=== PATIENT | female | born 2000 | race African-American/Black ===

== ENCOUNTER 2021-03-30 19:02 | Emergency (ER) | payer SELFPAY | END 2021-03-30 20:50 | disposition home or self-care (01) | LOC: CSHERS 19:02 | DX: K62.5 Hemorrhage of anus and rectum (principal); R13.10 Dysphagia, unspecified; F17.200 Nicotine dependence, unspecified, uncomplicated | CPT/HCPCS: 99283 ==

== ENCOUNTER 2021-04-25 16:14 | Emergency (ER) | payer SELFPAY ==
[2021-04-26 17:41] LABS: SARS-CoV-2 PCR by NAA Not Detected (NotDetected)
== END 2021-04-25 18:46 | disposition home or self-care (01) ==
LOC: CSHERS 16:14
DX: B34.9 Viral infection, unspecified (principal); F17.290 Nicotine dependence, other tobacco product, uncomplicated; Z20.822 Contact with and (suspected) exposure to COVID-19
CPT/HCPCS: 99283; U0003; U0005

== ENCOUNTER 2021-05-12 17:48 | Emergency (ER) | payer SELFPAY ==
[2021-05-13 15:38] LABS: SARS-CoV-2 PCR by NAA Not Detected (NotDetected)
== END 2021-05-12 21:38 | disposition home or self-care (01) ==
LOC: CSHERS 17:48
DX: R05.9 Cough, unspecified (principal); R50.9 Fever, unspecified; Z20.822 Contact with and (suspected) exposure to COVID-19; F17.200 Nicotine dependence, unspecified, uncomplicated
CPT/HCPCS: 99283; U0003; U0005

== ENCOUNTER 2021-09-27 17:17 | Emergency (ER) | payer BC, SELFPAY ==
[2021-09-27 18:32] LABS: Bilirubin Neg (Negative); Blood, Urine 10 (Negative); Clarity Clear (Clear); Glucose, Urine (Dipstick) Normal (Negative); Ketone, Urine Negative (Negative); Leukocyte Negative (Negative); Nitrite Negative (Negative); Protein, Urine (Dipstick) 30 mg/dl (Neg-Trace); Specific Gravity, Urine 1.015 (1.002-1.036); pH, Urine 6.5 (5.0-9.0)
[2021-09-27 18:35] LABS: Pregnancy Test - Urine (BHCG) Negative (Negative); Pregu Control Background? CLEAR/WHITE (CLR/WHITE); Pregu Control Bar Appear? YES (CONTROL BAR); Specific Gravity 1.015 (1.002-1.036)
[2021-09-27 18:55] LABS: Bacteria/HPF 2+ HPF (None Seen); Mucous/LPF 4+ LPF (<2+); WBC/HPF 0-3 HPF (0-3)
[2021-09-27] MEDS ORDERED: cefTRIAXone\\ROCEPHIN 500 MG VIAL ONE (19:14)
[2021-09-27] MEDS ORDERED: Lidocaine 2% PF 5 ML VIAL ONE (19:15)
[2021-09-27 19:34] LABS: Syphilis Antibody Nonreactive (Nonreactive); Syphilis Antibody Index 0.05 S/CO (<1.00 Non-Reactive)
[2021-09-28 13:27] LABS: Chlam.trachomatis by PCR,Urine Not Detected (NotDetected)
== END 2021-09-27 19:15 | disposition home or self-care (01) ==
LOC: CSHERS 17:17
DX: N89.8 Other specified noninflammatory disorders of vagina (principal); R59.0 Localized enlarged lymph nodes; Z20.2 Contact with and (suspected) exposure to infections with a predominantly sexual mode of transmission
CPT/HCPCS: 81003; 81015; 81025; 86780; 87491; 87591; 96372; 99283; J0696; J2001

== ENCOUNTER 2021-10-09 16:10 | Emergency (ER) | payer SELFPAY ==
[2021-10-09 17:57] LABS: Bilirubin Neg (Negative); Blood, Urine 150 (Negative); Clarity Clear (Clear); Glucose, Urine (Dipstick) Normal (Negative); Ketone, Urine 5 mg/dL (Negative); Leukocyte 25 (Negative); Nitrite Negative (Negative); Protein, Urine (Dipstick) 500 mg/dl (Neg-Trace); Specific Gravity, Urine 1.025 (1.002-1.036); Urobilinogen Normal mg/dL (Less than 2)
[2021-10-09 17:59] LABS: Pregnancy Test - Urine (BHCG) Negative (Negative); Pregu Control Background? CLEAR/WHITE (CLR/WHITE); Pregu Control Bar Appear? YES (CONTROL BAR); Specific Gravity 1.025 (1.002-1.036)
[2021-10-09 18:29] LABS: Bacteria/HPF None Seen HPF (None Seen); Mucous/LPF 1+ LPF (<2+); Squamous Epithelial 0-3 HPF (0-3); WBC/HPF 0-3 HPF (0-3)
[2021-10-10 15:44] LABS: Chlamydia by PCR Not Detected (NotDetected); GC by PCR Not Detected (NotDetected)
== END 2021-10-09 18:29 | disposition home or self-care (01) ==
LOC: CSHERS 16:10
DX: N76.0 Acute vaginitis (principal)
CPT/HCPCS: 81003; 81015; 81025; 87480; 87491; 87510; 87591; 87660; 99284

== ENCOUNTER 2021-10-23 16:17 | Emergency (ER) | payer SELFPAY ==
[2021-10-23 17:30] LABS: #Monocytes 0.5 10x3/uL (0.0-1.1); #Neutrophils 5.5 10x3/uL (1.5-8.4); %Basophils 0.3 % (0.0-2.0); %Eosinophils 0.4 % (0.0-6.0); %Lymphocytes 20.2 % (18.0-47.0); %Monocytes 6.1 % (0.0-10.0); %Neutrophils 72.6 % (40.0-75.0); Hemoglobin 13.4 g/dL (12.0-15.5); Mean Corpuscular HGB CONC 32.4 g/dL (32.0-36.0); Mean Corpuscular Hemoglobin 28.8 pg (27.0-33.0); Mean Corpuscular Volume 88.8 fl (81.6-98.3); Mean Platelet Volume 9.6 fl (7.4-10.4); Platelet Count 234 10x3/uL (150-450); RBC Distribution Width 13.1 % (11.5-14.5); Red Blood Cell (RBC) Count 4.65 10x6/uL (3.90-5.03); White Blood Cell (WBC) Count 7.5 10x3/uL (3.5-10.5)
[2021-10-23 17:39] LABS: ALT (SGPT) 16 U/L (8-55); AST (SGOT) 16 U/L (5-34); Albumin 4.3 g/dL (3.5-5.0); Alkaline Phosphatase 46 U/L (40-110); Anion Gap 14 mmol/L (10-20); BUN (Urea Nitrogen) 12 mg/dL (7.0-18.7); Calc. Creatinine Clearance 0 mL/min (70-130); Calcium 9.6 mg/dL (7.8-10.44); Carbon Dioxide 26 mmol/L (22-29); Chloride 103 mmol/L (98-107); Estimated GFR 97; Globulin 3.3 g/dL (2.4-3.5); Glucose 121 mg/dL (70-105); Lipase 40 U/L (8-78); Potassium 3.1 mmol/L (3.5-5.1); Protein, Total 7.6 g/dL (6.0-8.3); Sodium 140 mmol/L (136-145)
[2021-10-23] MEDS ORDERED: Ondansetron ODT 4 MG TAB ONE (18:38)
[2021-10-23] MEDS ORDERED: Lidocaine Viscous Sol 2% 15 ml UD Cup ONE (18:39)
[2021-10-23] MEDS ORDERED: Ketorolac Tromethamine 30 MG/ML VIAL ONE (18:39)
[2021-10-23] MEDS ORDERED: Mag-Al Plus 1200 MG/1200 MG/120 MG/30 ML UDCUP ONE (18:39)
== END 2021-10-23 19:00 | disposition home or self-care (01) ==
LOC: CSHERS 16:17
DX: R10.13 Epigastric pain (principal)
CPT/HCPCS: 80053; 83690; 85025; 96372; 99284; J1885; Q0162

== ENCOUNTER 2021-10-24 07:51 | Emergency (ER) | payer SELFPAY ==
[2021-10-24] MEDS ORDERED: Ondansetron ODT 4 MG TAB ONE (09:12)
[2021-10-24] MEDS ORDERED: Milk Of Magnesia 30 ML UDCUP ONE (09:12)
[2021-10-24] MEDS ORDERED: Lidocaine Viscous Sol 2% 15 ml UD Cup ONE (09:13)
[2021-10-24] MEDS ORDERED: Dicyclomine 20 MG/2 ML VIAL ONE (09:40)
== END 2021-10-24 09:54 | disposition home or self-care (01) ==
LOC: CSHERS 07:51
DX: K29.00 Acute gastritis without bleeding (principal)
CPT/HCPCS: 71046; 93005; 96372; Q0162

== ENCOUNTER 2022-12-22 18:41 | Emergency (ER) | payer MEDICAID, OTHER | END 2022-12-22 20:21 | disposition home or self-care (01) | LOC: CSHERS 18:41 | DX: O99.891 Other specified diseases and conditions complicating pregnancy (principal); H57.89 Other specified disorders of eye and adnexa; O99.332 Smoking (tobacco) complicating pregnancy, second trimester; F17.290 Nicotine dependence, other tobacco product, uncomplicated; Z3A.23 23 weeks gestation of pregnancy | CPT/HCPCS: 99283 ==

== ENCOUNTER 2023-03-09 12:24 | Day surgery (SDC) | payer OTHER ==
[2023-03-09 12:53] VITALS: BMI 24.9
[2023-03-09] MEDS ORDERED: hydrALAZINE 20 MG/ML VIAL SLOW IVP PRN (13:07)
[2023-03-09 14:13] LABS: Bilirubin Neg (Negative); Blood, Urine Negative (Negative); Clarity Clear (Clear); Glucose, Urine (Dipstick) Normal (Negative); Ketone, Urine Negative (Negative); Leukocyte 25 (Negative); Nitrite Negative (Negative); Protein, Urine (Dipstick) 15 mg/dl (Neg-Trace); Specific Gravity, Urine 1.015 (1.005-1.030); Urobilinogen Normal mg/dL (Less than 2)
[2023-03-09 14:35] LABS: Bacteria/HPF 2+ HPF (None Seen); CAUTI Indications for Culture Pregnancy; RBC/HPF 0-3 HPF (0-3); Squamous Epithelial 0-3 HPF (0-3); Transitional Epithelial 0-3 HPF (None Seen)
[2023-03-09 14:36] LABS: Urine Culture Reflex Yes Yes
== END 2023-03-09 15:40 | disposition home or self-care (01) ==
LOC: CSHLD/OP 12:24
PROVIDERS: ATTEND Obstetrics & Gynecology
DX: O26.853 Spotting complicating pregnancy, third trimester (principal); O99.891 Other specified diseases and conditions complicating pregnancy; R10.84 Generalized abdominal pain; Z79.899 Other long term (current) drug therapy; Z3A.30 30 weeks gestation of pregnancy
CPT/HCPCS: 76815; 81001; 87086; 87480; 87510; 87660